=== PATIENT | female | born 1975 | race Caucasian/White ===

== ENCOUNTER 2025-10-27 21:31 | Emergency (ER) | payer MEDICARE ==
[~2025-10-27] VITALS: Ht 162.6 cm; Wt 54.4 kg
[2025-10-27 21:37] VITALS: BP 121/76
[2025-10-27] MEDS ORDERED: PRED50TA PO (23:31)
[2025-10-27 23:37] VITALS: BP 124/72; O2SAT 99
== END 2025-10-27 23:36 | disposition home or self-care (01) ==
LOC: ER 21:31
DX: M31.6 Other giant cell arteritis (principal); G43.909 Migraine, unspecified, not intractable, without status migrainosus; E78.5 Hyperlipidemia, unspecified; B02.9 Zoster without complications; H40.20X0 Unspecified primary angle-closure glaucoma, stage unspecified; I51.9 Heart disease, unspecified; Z79.52 Long term (current) use of systemic steroids; Z88.1 Allergy status to other antibiotic agents; Z90.710 Acquired absence of both cervix and uterus
CPT/HCPCS: 36415; 85651; 86140; A4606; A4663